=== PATIENT | female | born 1975 | race Caucasian/White ===

== ENCOUNTER 2019-05-17 08:00 | Outpatient (RCR) | payer OTHER ==
[~2019-05-17 08:00] MED LIST: AMBIEN5 MG PO; CYCLOBENZAPRINE5 MG PO; KLONOPIN0.5 MG PO; PREDNISONE10 MG PO
== END 2019-06-05 ==
LOC: PT 08:00
PROVIDERS: ATTEND Neurological Surgery
DX: M51.17 Intervertebral disc disorders with radiculopathy, lumbosacral region (principal)

== ENCOUNTER 2019-06-09 08:00 | Outpatient (RCR) | payer OTHER | END 2019-07-06 | LOC: PT 08:00 | PROVIDERS: ATTEND Neurological Surgery | DX: M51.17 Intervertebral disc disorders with radiculopathy, lumbosacral region (principal); M53.86 Other specified dorsopathies, lumbar region; M62.81 Muscle weakness (generalized) ==